=== PATIENT | female | born 1950 | race Caucasian/White ===

== ENCOUNTER 2022-10-09 10:45 | Inpatient (IN) | payer OTHER, MEDICARE ==
[2022-10-09 11:13] VITALS: BMI 23.3
[2022-10-09 12:08] LABS: INR 0.98 (0.83-1.09); PROTHROMBIN TIME (PATIENT) 11.3 SEC (9.7-13.0)
[2022-10-09 12:09] LABS: HEMATOCRIT 46.3 % (32.4-45.2); HEMOGLOBIN 15.7 G/dL (10.7-15.3); MCH 31.1 pg (25.7-33.7); MCHC 33.8 g/dl (32.0-36.0); MEAN CELL VOLUME 91.8 fl (80-96); MEAN PLT VOLUME 9.9 fl (7.5-11.1); PLATELET COUNT 188.9 10^3/uL (134-434); RBC 5.04 10^6/uL (3.60-5.2); RDW 13.9 % (11.6-15.6); WHITE BLOOD COUNT 6.9 10^3/uL (4.0-10.8)
[2022-10-09 12:11] LABS: ACTIVATED PTT 30.9 SECONDS (25.2-36.5)
[2022-10-09] MEDS ORDERED: ASPIRIN 81 MG CHEWABLE TABLETS PO ONE (12:14)
[2022-10-09 12:21] LABS: BILIRUBIN,TOTAL 0.6 mg/dl (0.2-1); CALCIUM 9.3 mg/dl (8.5-10); CREATININE 0.8 mg/dl (0.55-1.3); TOT PROT 7.2 g/dl (6.4-8.2)
[2022-10-09] MEDS ORDERED: ASPIRIN 81 MG CHEWABLE TABLETS ONE (12:44)
[2022-10-09 13:52] LABS: PLATELET ESTIMATE ADEQUATE
[2022-10-09] MEDS ORDERED: ROSUVASTATIN CA 20 MG TABLET PO SCH (22:00)
[2022-10-10] MEDS ORDERED: ROSUVASTATIN CA 40 MG TABLET PO SCH (08:29)
[2022-10-10 08:38] LABS: CALCIUM 8.9 mg/dl (8.5-10); CREATININE 0.9 mg/dl (0.55-1.3); MAGNESIUM 2.2 mg/dL (1.8-2.4)
[2022-10-10 08:41] LABS: HEMATOCRIT 41.1 % (32.4-45.2); HEMOGLOBIN 13.6 G/dL (10.7-15.3); MCH 30.4 pg (25.7-33.7); MCHC 33.1 g/dl (32.0-36.0); MEAN CELL VOLUME 91.9 fl (80-96); MEAN PLT VOLUME 9.9 fl (7.5-11.1); PLATELET COUNT 170.4 10^3/uL (134-434); RBC 4.47 10^6/uL (3.60-5.2); RDW 14.3 % (11.6-15.6); WHITE BLOOD COUNT 6.3 10^3/uL (4.0-10.8)
[2022-10-10] MEDS: ENOXAPARIN NA (PORCINE) 40 MG/0.4 ML DISP.SYRIN SQ SCH (09:32)
[2022-10-10] MEDS: amLODIPine BESYLATE 10 MG TABLET (FP) PO SCH (09:32)
[2022-10-10] MEDS: ASPIRIN 81 MG CHEWABLE TABLETS PO SCH (09:33)
[2022-10-10 23:01] VITALS: RESP 17
[2022-10-11] MEDS: amLODIPine BESYLATE 10 MG TABLET (FP) PO SCH (10:59)
[2022-10-11] MEDS: ASPIRIN 81 MG CHEWABLE TABLETS PO SCH (10:59)
[2022-10-11] MEDS: ENOXAPARIN NA (PORCINE) 40 MG/0.4 ML DISP.SYRIN SQ SCH (10:59)
[2022-10-11 13:16] VITALS: TEMP 98.6
[2022-10-11 14:09] VITALS: BP 113/66; PULSE 86
== END 2022-10-11 16:45 | disposition home or self-care (01) | DRG 65 ==
LOC: FER 10:45 → FM/S 13:25
PROVIDERS: ADMIT Internal Medicine
DX: I63.9 Cerebral infarction, unspecified (principal); I69.351 Hemiplegia and hemiparesis following cerebral infarction affecting right dominant side; I10 Essential (primary) hypertension; E78.5 Hyperlipidemia, unspecified; R29.706 NIHSS score 6; R29.810 Facial weakness; R47.01 Aphasia
CPT/HCPCS: 0241U-QW; 36415; 70450-TC; 70551-TC; 71045-TC-FY; 80048; 80053; 80061; 81003; 81015; 82550; 83036; 83735; 84100; 84484; 85025; 85027; 85610; 85730; 86850; 86900; 86901; 93005; 93306-TC; 93880-TC; 97116-GP; 97162-GP; 99285-25

== ENCOUNTER 2025-06-24 20:46 | Inpatient (IN) | payer OTHER, MEDICARE ==
[2025-06-24 21:11] VITALS: BMI 24.9
[2025-06-24] MEDS ORDERED: ACETAMINOPHEN INJECTION 100 ML ONE (21:20)
[2025-06-24 21:39] LABS: MCHC 31.7 g/dl (32.2-35.5); MEAN CELL VOLUME 94.0 fl (79.4-94.8); MEAN PLT VOLUME 11.4 fl (9.4-12.3); RDW 13.3 % (12.4-16.6)
[2025-06-24] MEDS: ACETAMINOPHEN 1000 MG/100 ML BAG IVPB ONE (21:42)
[2025-06-24] MEDS: SODIUM CHLORIDE 0.9% 500 ML INFUS.BAG IV ONE (21:42)
[2025-06-24 21:44] LABS: URIC ACID CRYSTALS FEW /hpf (NONE SEEN)
[2025-06-24 22:02] LABS: INR 1.09 (0.83-1.09); PROTHROMBIN TIME (PATIENT) 12.1 SEC (9.7-13.0)
[2025-06-24 22:12] LABS: ALK PHOS 63.0 U/L (45-117); CO2 25.0 mmol/L (21-32); CREATININE 0.8 mg/dl (0.6-1.3); GLUCOSE,RANDOM 107.0 mg/dl (74-106); SGOT/AST 14.0 U/L (15-37); SGPT/ALT 15.0 U/L (7-52); TOT PROT 6.7 g/dl (6.4-8.2)
[2025-06-24] MEDS ORDERED: PIPERACILLIN/TAZOBACTAM 3.375 GM VIAL IVPB ONE (23:05)
[2025-06-24] MEDS: PIPERACILLIN/TAZOB 3.375 GM 3.375 GM in DEXTROSE 5%-WATER - 50 ML IVPB ONE (23:12)
[2025-06-24] MEDS: DEXTROSE 5%-0.45% SALINE 1,000 ML IV SCH (23:51)
[2025-06-25 03:20] LABS: HCV DIAGNOSTIC IN-HOUSE W/RFLX NON-REACTIVE (NONREACTIVE); HIV INTERPRETATION NEGATIVE (NEGATIVE)
[2025-06-25 08:39] LABS: ABSOLUTE IMMATURE GRANULOCYTES 0.06 x10^3/uL (0.0-0.031); BASOPHILS # 0.02 x10^3/uL (0.01-0.08); EOSINOPHIL % 2.9 % (0.7-5.8); EOSINOPHILS # 0.24 x10^3/uL (0.04-0.36); MCHC 31.5 g/dl (32.2-35.5); MEAN CELL VOLUME 94.8 fl (79.4-94.8); MEAN PLT VOLUME 11.9 fl (9.4-12.3); MONOCYTE # 0.79 x10^3/uL (0.24-0.86); MONOCYTE % 9.5 % (4.7-12.5); RDW 13.4 % (12.4-16.6)
[2025-06-25] MEDS: PIPERACILLIN/TAZOB 3.375 GM 3.375 GM in DEXTROSE 5%-WATER - 50 ML IVPB SCH (09:40)
[2025-06-25 09:50] LABS: GLUCOSE,RANDOM 109.0 mg/dL (74-106)
[2025-06-25 09:51] LABS: CO2 21.0 mmol/L (21-32)
[2025-06-25 09:56] LABS: CREATININE 0.69 mg/dL (0.55-1.3)
[2025-06-25] MEDS: ACETAMINOPHEN 1000 MG/100 ML BAG IVPB PRN (16:18)
[2025-06-26] MEDS: PIPERACILLIN/TAZOB 3.375 GM 3.375 GM in DEXTROSE 5%-WATER - 50 ML IVPB SCH ×2 (01:55→03:11)
[2025-06-26 09:55] LABS: ABSOLUTE IMMATURE GRANULOCYTES 0.04 x10^3/uL (0.0-0.031); BASOPHILS # 0.04 x10^3/uL (0.01-0.08); EOSINOPHIL % 5.5 % (0.7-5.8); EOSINOPHILS # 0.36 x10^3/uL (0.04-0.36); MCHC 31.5 g/dl (32.2-35.5); MEAN CELL VOLUME 93.9 fl (79.4-94.8); MEAN PLT VOLUME 11.7 fl (9.4-12.3); MONOCYTE # 0.66 x10^3/uL (0.24-0.86); MONOCYTE % 10.0 % (4.7-12.5); RDW 13.3 % (12.4-16.6)
[2025-06-26 10:55] LABS: GLUCOSE,RANDOM 109.0 mg/dL (74-106)
[2025-06-26 10:56] LABS: TOT PROT 5.7 g/dl (6.4-8.2)
[2025-06-26 10:57] LABS: CO2 23.0 mmol/L (21-32)
[2025-06-26 10:58] LABS: ALK PHOS 68.0 U/L (40-150)
[2025-06-26 11:01] LABS: CREATININE 0.72 mg/dL (0.55-1.3); SGOT/AST 11.0 U/L (5-34); SGPT/ALT 10.0 U/L (0-55)
[2025-06-27 09:07] LABS: ABSOLUTE IMMATURE GRANULOCYTES 0.06 x10^3/uL (0.0-0.031); BASOPHILS # 0.04 x10^3/uL (0.01-0.08); EOSINOPHIL % 4.7 % (0.7-5.8); EOSINOPHILS # 0.29 x10^3/uL (0.04-0.36); MCHC 31.4 g/dl (32.2-35.5); MEAN CELL VOLUME 93.8 fl (79.4-94.8); MEAN PLT VOLUME 11.4 fl (9.4-12.3); MONOCYTE # 0.54 x10^3/uL (0.24-0.86); MONOCYTE % 8.8 % (4.7-12.5); RDW 13.3 % (12.4-16.6)
[2025-06-27] MEDS ORDERED: SIMETHICONE 40 MG/0.6 ML BOTTLE PO PRN (09:29)
[2025-06-27] MEDS: PANTOPRAZOLE 40 MG TABLET PO SCH (09:53)
[2025-06-27 10:00] LABS: GLUCOSE,RANDOM 133.0 mg/dL (74-106)
[2025-06-27 10:01] LABS: TOT PROT 5.9 g/dl (6.4-8.2)
[2025-06-27 10:02] LABS: CO2 22.0 mmol/L (21-32)
[2025-06-27 10:03] LABS: ALK PHOS 64.0 U/L (40-150)
[2025-06-27 10:06] LABS: CREATININE 0.79 mg/dL (0.55-1.3); SGOT/AST 12.0 U/L (5-34); SGPT/ALT 10.0 U/L (0-55)
[2025-06-27] MEDS: POTASSIUM CHLORIDE ORAL LIQUID 20 MEQ/15 ML PO ONE (17:27)
[2025-06-27 22:37] VITALS: RESP 18
[2025-06-28 08:42] LABS: MCHC 31.3 g/dl (32.2-35.5); MEAN CELL VOLUME 94.9 fl (79.4-94.8); MEAN PLT VOLUME 10.8 fl (9.4-12.3); RDW 13.4 % (12.4-16.6)
[2025-06-28] MEDS: LACTOBACILLUS ACIDOPHILUS 1 TABLET PO SCH (10:13)
[2025-06-28 10:17] LABS: GLUCOSE,RANDOM 103.0 mg/dL (74-106)
[2025-06-28 10:19] LABS: CO2 22.0 mmol/L (21-32)
[2025-06-28 10:23] LABS: CREATININE 0.78 mg/dL (0.55-1.3)
[2025-06-29 08:08] LABS: MCHC 31.3 g/dl (32.2-35.5); MEAN CELL VOLUME 94.3 fl (79.4-94.8); MEAN PLT VOLUME 11.1 fl (9.4-12.3); RDW 13.4 % (12.4-16.6)
[2025-06-29 09:15] VITALS: BP 125/75; PULSE 93; TEMP 97.7
== END 2025-06-29 13:05 | disposition home or self-care (01) | DRG 394 ==
LOC: FER 20:46 → SUATTDRO 20:46 → J8W 06-25 05:30 → J7W 06-26 10:27
PROVIDERS: ADMIT Internal Medicine; ATTEND Internal Medicine
DX: K35.80 Unspecified acute appendicitis (principal); I69.351 Hemiplegia and hemiparesis following cerebral infarction affecting right dominant side; I10 Essential (primary) hypertension; E78.5 Hyperlipidemia, unspecified; K52.9 Noninfective gastroenteritis and colitis, unspecified
CPT/HCPCS: 36415; 74177-TC; 80048; 80053; 81003; 81015; 83605; 85025; 85027; 85610; 86140; 86803; 87040; 87045; 87046; 87086; 87205; 87209; 87324; 87328; 87329; 87389; 87425; 87449; 87637-QW; 87798; 99285-25; Q9967